=== PATIENT | male | born 1980 | race Caucasian/White ===

== ENCOUNTER 2023-04-29 11:38 | Inpatient (IN) | payer OTHER ==
[2023-04-29] MEDS ORDERED: VANCOMYCIN 1,000 MG in DEXTROSE 5%-WATER - 250 ML IVPB ONE ×2 (12:49→12:54)
[2023-04-29] MEDS ORDERED: PIPERACILLIN/TAZOB 4.5 GM 4.5 GM/100 ML BAG IVPB ONE ×3 (12:49→13:25)
[2023-04-29] MEDS ORDERED: CLINDAMYCIN IVPB 300 MG in DEXTROSE 5%-WATER - 48 ML IVPB ONE (12:54)
[2023-04-29] MEDS ORDERED: VANCOMYCIN 1 GRAM (PRE-DOCKED) 1,000 MG/250 ML BAG IVPB ONE (13:25)
[2023-04-29] MEDS ORDERED: ONDANSETRON 4 MG/2 ML VIAL IVPUSH PRN (14:01)
[2023-04-29] MEDS ORDERED: IBUPROFEN 800 MG/8 ML IJ IVPB PRN (14:01)
[2023-04-29] MEDS ORDERED: LIDOCAINE HCL/PF 2% SDV 5ML VIAL ONE (14:09)
[2023-04-29] MEDS ORDERED: PROPOFOL 40 ML ONE (14:09)
[2023-04-29] MEDS ORDERED: MIDAZOLAM HCL 2 MG/2 ML SINGLE DOSE VIAL ONE (14:10)
[2023-04-29] MEDS ORDERED: FENTANYL CITRATE/PF 50 MCG/ML VIAL ONE ×7 (14:10→16:47)
[2023-04-29 14:30] LABS: BASO % 0.4 % (0-2.0); EOS % 0.5 % (0-4.5); HEMATOCRIT 32.8 % (35.4-49); HEMOGLOBIN 10.5 GM/dL (11.7-16.9); LYMPH % 6.4 % (8-40); MCH 26.4 pg (25.7-33.7); MEAN CELL VOLUME 82.5 fl (80-96); MEAN PLT VOLUME 7.6 fl (7.5-11.1); MONO % 6.6 % (3.8-10.2); NEUT % 86.1 % (42.8-82.8); PLATELET COUNT 405 10^3/uL (134-434); RBC 3.97 M/mm3 (4.00-5.60); RDW 13.9 % (11.9-15.9); WHITE BLOOD COUNT 19.2 K/mm3 (4.0-10.0)
[2023-04-29 14:32] LABS: VENOUS BASE EXCESS -1.6 mmol/L (-2-2); VENOUS O2 SATURATION 79.1 % (70-80); VENOUS PCO2 35.6 mmHg (38-52); VENOUS PH 7.417 (7.310-7.410)
[2023-04-29] MEDS ORDERED: PIPERACILLIN/TAZOBACTAM 3.375 GM VIAL IVPB ONE (14:35)
[2023-04-29 14:46] LABS: INR 1.3 (0.83-1.09)
[2023-04-29 14:49] LABS: ACTIVATED PTT 26.4 SECONDS (25.2-36.5)
[2023-04-29 14:50] LABS: CHLORIDE 100 mmol/L (98-107); POTASSIUM 3.7 mmol/L (3.5-5.1); SODIUM 129 mmol/L (136-145)
[2023-04-29] MEDS ORDERED: VANCOMYCIN 1,000 MG VIAL (RESTRICTED TO ID ONLY) IVPB ONE ×2 (14:50→15:19)
[2023-04-29] MEDS ORDERED: VANCOMYCIN 500 MG VIAL (RESTRICTED TO ID ONLY) IVPB ONE (14:50)
[2023-04-29 14:53] LABS: ANION GAP 7 mmol/L (4-13); CALCIUM 8.7 mg/dL (8.5-10.1); CO2 22 mmol/L (21-32); GLUCOSE,RANDOM 274 mg/dL (74-106)
[2023-04-29 14:54] LABS: ALBUMIN 2.6 g/dl (3.4-5.0); BLOOD UREA NITROGEN 15.6 mg/dL (7-18)
[2023-04-29 14:56] LABS: SGOT/AST 37 U/L (15-37)
[2023-04-29 14:57] LABS: BILIRUBIN,TOTAL 0.8 mg/dL (0.2-1); CREATININE 0.7 mg/dL (0.55-1.3); LDL CHOLESTEROL (ONLY SJRH) 97 mg/dL (5-100); SGPT/ALT 79 U/L (13-61)
[2023-04-29 14:58] LABS: ALK PHOS 220 U/L (45-117); CHOLESTEROL 146 mg/dL (50-200); TOT PROT 7.9 g/dl (6.4-8.2)
[2023-04-29 14:59] LABS: HDL CHOLESTEROL 16 mg/dL (40-60)
[2023-04-29] MEDS ORDERED: VANCOMYCIN 1,000 MG VIAL (RESTRICTED TO ID ONLY) ONE (15:08)
[2023-04-29 15:19] LABS: ERYTHROCYTE SEDIMENTATION RATE 102 mm/hr (0-10)
[2023-04-29] MEDS ORDERED: VANCOMYCIN 1 GM in NS (PRE-DOCKED) 1,000 MG/250 ML (RESTRICTED TO ID ONLY) IVPB ONE (15:19)
[2023-04-29] MEDS: SODIUM CHLORIDE 1,000 ML IV SCH ×2 (16:57→22:19)
[2023-04-29] MEDS ORDERED: CLINDAMYCIN 600MG PREMIX IVPB 600 MG/50 ML BAG IVPB ONE (17:33)
[2023-04-29] MEDS ORDERED: VANCOMYCIN/WATER 1250 MG 1,250 MG/250 ML BAG IVPB SCH (18:00)
[2023-04-29] MEDS ORDERED: PIPERACILLIN/TAZOB 4.5 GM 4.5 GM in DEXTROSE 5%-WATER 100 ML IVPB SCH (18:00)
[2023-04-29] MEDS: CLINDAMYCIN 900 MG PREMIX IVPB 900 MG/50 ML BAG IVPB SCH (18:17)
[2023-04-29] MEDS: PIPERACILLIN/TAZOB 4.5 GM 4.5 GM in DEXTROSE 5%-WATER 100 ML IVPB SCH (18:36)
[2023-04-29] MEDS ORDERED: MELATONIN 5 MG TABLETS PO PRN (19:00)
[2023-04-29] MEDS ORDERED: HYDROmorphone HCl 2 MG/ML VIAL IVPB ONE (20:17)
[2023-04-29] MEDS ORDERED: INSULIN (NOVOLOG) ASPART 100 UNITS/ML 10ML VIAL ONE (22:12)
[2023-04-29] MEDS: INSULIN SLIDING SCALE (NOVOLOG) 1 VIAL SQ SCH (22:20)
[2023-04-29] MEDS: ACETAMINOPHEN 1000 MG/100 ML BAG IVPB PRN (23:47)
[2023-04-30] MEDS: CLINDAMYCIN 900 MG PREMIX IVPB 900 MG/50 ML BAG IVPB SCH ×3 (01:52→19:26)
[2023-04-30] MEDS: PIPERACILLIN/TAZOB 4.5 GM 4.5 GM in DEXTROSE 5%-WATER 100 ML IVPB SCH ×2 (02:43→10:02)
[2023-04-30] MEDS: VANCOMYCIN/WATER 1250 MG 1,250 MG/250 ML BAG IVPB SCH ×2 (04:19→15:46)
[2023-04-30] MEDS: INSULIN SLIDING SCALE (NOVOLOG) 1 VIAL SQ SCH ×5 (06:59→22:06)
[2023-04-30 08:43] LABS: HEMOGLOBIN 9.1 GM/dL (11.7-16.9); MCH 26.7 pg (25.7-33.7); MCHC 32.4 g/dl (32.0-35.9); MEAN CELL VOLUME 82.4 fl (80-96); MEAN PLT VOLUME 7.3 fl (7.5-11.1); PLATELET COUNT 329 10^3/uL (134-434); RDW 14.1 % (11.9-15.9); WHITE BLOOD COUNT 12.6 K/mm3 (4.0-10.0)
[2023-04-30 08:56] LABS: EPI CELLS 13 /uL (0-25.1); HYALINE CASTS 1 /uL (0-3.1); URINE APPEARANCE CLOUDY; URINE BACTERIA 13 /uL (0-1359); URINE BILIRUBIN 1+ (NEGATIVE); URINE COLOR DK YELLOW; URINE GLUCOSE (UA) 3+ (NEGATIVE); URINE KETONE TRACE (NEGATIVE); URINE LEUK ESTERASE NEGATIVE (NEGATIVE); URINE NITRITE NEGATIVE (NEGATIVE); URINE PROTEIN 1+ (NEGATIVE); URINE RBC 38 /uL (0-23.9); URINE WBC 42 /uL (0-25.8)
[2023-04-30 09:03] LABS: POTASSIUM 3.6 mmol/L (3.5-5.1)
[2023-04-30 09:19] LABS: CALCIUM 7.5 mg/dL (8.5-10.1)
[2023-04-30 09:20] LABS: BLOOD UREA NITROGEN 14.4 mg/dL (7-18)
[2023-04-30 09:21] LABS: ALBUMIN 2.2 g/dl (3.4-5.0); MAGNESIUM 2.1 mg/dL (1.8-2.4)
[2023-04-30 09:22] LABS: PHOSPHOROUS 3.4 mg/dL (2.5-4.9)
[2023-04-30 09:23] LABS: CREATININE 0.7 mg/dL (0.55-1.3)
[2023-04-30 09:24] LABS: BILIRUBIN,TOTAL 0.8 mg/dL (0.2-1)
[2023-04-30 09:30] LABS: TOT PROT 5.7 g/dl (6.4-8.2)
[2023-04-30] MEDS: SODIUM CHLORIDE 1,000 ML IV SCH ×2 (09:56→15:32)
[2023-04-30 11:10] LABS: ANISOCYTOSIS 0; HELMET CELLS 0; HOWELL-JOLLY BODIES 0; MACROCYTOSIS 0; OVALOCYTE 0; ROULEAU 0; SICKELED CELLS 0; TARGET CELLS 0; TEAR DROP CELLS 0; TOXIC GRANULATION 0
[2023-04-30] MEDS ORDERED: INSULIN (NOVOLOG) ASPART 100 UNITS/ML 10ML VIAL ONE ×3 (12:16→16:37)
[2023-04-30] MEDS: ACETAMINOPHEN 1000 MG/100 ML BAG IVPB PRN (13:36)
[2023-04-30 15:25] VITALS: BMI 37.5
[2023-05-01] MEDS ORDERED: BUPIVACAINE HCL/PF 0.5% (5MG/ML) 10 ML VIAL IJ ONE
[2023-05-01] MEDS ORDERED: LIDOCAINE HCL 1%, 10 MG/ML (20ML VIAL) INF ONE
[2023-05-01] MEDS: SODIUM CHLORIDE 1,000 ML IV SCH ×2 (00:42→11:25)
[2023-05-01] MEDS: CLINDAMYCIN 900 MG PREMIX IVPB 900 MG/50 ML BAG IVPB SCH ×3 (02:08→17:08)
[2023-05-01] MEDS: INSULIN SLIDING SCALE (NOVOLOG) 1 VIAL SQ SCH ×4 (06:54→22:24)
[2023-05-01] MEDS ORDERED: LIDOCAINE HCL 1%, 10 MG/ML (20ML VIAL) ONE (07:45)
[2023-05-01] MEDS ORDERED: GENTAMICIN SO4 80 MG/2 ML VIAL ONE (07:45)
[2023-05-01] MEDS ORDERED: BUPIVACAINE HCL/PF 0.5% (5MG/ML) 10 ML VIAL ONE (07:45)
[2023-05-01] MEDS ORDERED: VANCOMYCIN 1,000 MG VIAL (RESTRICTED TO ID ONLY) ONE ×2 (07:45→09:35)
[2023-05-01] MEDS ORDERED: THROMBIN (BOVINE) 5,000 UNIT VIAL TP ONE (08:04)
[2023-05-01] MEDS ORDERED: PROPOFOL 20 ML ONE (09:05)
[2023-05-01] MEDS ORDERED: MIDAZOLAM HCL 2 MG/2 ML SINGLE DOSE VIAL ONE (09:05)
[2023-05-01] MEDS ORDERED: FENTANYL CITRATE/PF 50 MCG/ML VIAL ONE ×4 (09:05→11:10)
[2023-05-01] MEDS ORDERED: SUCCINYLCHOLINE CHLORIDE 200 MG/10 ML SYRINGE ONE (09:07)
[2023-05-01] MEDS ORDERED: DEXAMETHASONE SOD PHOSPHATE 4 MG/1 ML VIAL ONE (09:20)
[2023-05-01] MEDS ORDERED: ONDANSETRON 4 MG/2 ML VIAL ONE (09:20)
[2023-05-01] MEDS ORDERED: GENTAMICIN 80MG PREMIX BAG IVPB ONE ×2 (09:30)
[2023-05-01] MEDS ORDERED: VANCOMYCIN 1,000 MG VIAL (RESTRICTED TO ID ONLY) IVPB ONE (09:37)
[2023-05-01] MEDS ORDERED: PIPERACILLIN/TAZOB 4.5 GM 4.5 GM in DEXTROSE 5%-WATER 100 ML IVPB SCH (10:00)
[2023-05-01] MEDS ORDERED: LACTATED RINGERS SOLUTION 1,000 ML IV SCH (10:45)
[2023-05-01 17:31] LABS: BASO % 0.1 % (0-2.0); HEMATOCRIT 29.3 % (35.4-49); HEMOGLOBIN 9.7 GM/dL (11.7-16.9); LYMPH % 5.6 % (8-40); MCH 26.9 pg (25.7-33.7); MEAN CELL VOLUME 81.7 fl (80-96); MEAN PLT VOLUME 6.8 fl (7.5-11.1); MONO % 6.8 % (3.8-10.2); NEUT % 87.5 % (42.8-82.8); PLATELET COUNT 392 10^3/uL (134-434); RBC 3.59 M/mm3 (4.00-5.60); RDW 13.9 % (11.9-15.9); WHITE BLOOD COUNT 14.2 K/mm3 (4.0-10.0)
[2023-05-01] MEDS: PIPERACILLIN/TAZOB 4.5 GM 4.5 GM in DEXTROSE 5%-WATER 100 ML IVPB SCH (17:50)
[2023-05-01] MEDS: INSULIN (LEVEMIR) 100 UNITS/ML UNITS SQ SCH (21:57)
[2023-05-01] MEDS: MELATONIN 5 MG TABLETS PO PRN (21:59)
[2023-05-01] MEDS ORDERED: INSULIN (NOVOLOG) ASPART 100 UNITS/ML 10ML VIAL ONE (22:46)
[2023-05-02] MEDS: PIPERACILLIN/TAZOB 4.5 GM 4.5 GM in DEXTROSE 5%-WATER 100 ML IVPB SCH ×3 (01:05→18:25)
[2023-05-02] MEDS: CLINDAMYCIN 900 MG PREMIX IVPB 900 MG/50 ML BAG IVPB SCH ×3 (01:06→17:11)
[2023-05-02] MEDS: SODIUM CHLORIDE 1,000 ML IV SCH ×2 (01:08→12:11)
[2023-05-02] MEDS: INSULIN (NOVOLOG) ASPART 100 UNITS/ML 10ML VIAL SQ SCH ×3 (06:43→16:37)
[2023-05-02] MEDS: INSULIN SLIDING SCALE (NOVOLOG) 1 VIAL SQ SCH ×4 (06:44→22:42)
[2023-05-02] MEDS ORDERED: INSULIN (NOVOLOG) ASPART 100 UNITS/ML 10ML VIAL ONE (16:43)
[2023-05-02] MEDS ORDERED: ACETAMINOPHEN 325 MG TABLET (FP) PO ONE (18:30)
[2023-05-02] MEDS: VANCOMYCIN/WATER 1250 MG 1,250 MG/250 ML BAG IVPB SCH (19:46)
[2023-05-02] MEDS: INSULIN (LEVEMIR) 100 UNITS/ML UNITS SQ SCH (22:42)
[2023-05-02] MEDS: MELATONIN 5 MG TABLETS PO PRN (23:14)
[2023-05-03] MEDS: SODIUM CHLORIDE 1,000 ML IV SCH ×2 (01:35→20:03)
[2023-05-03] MEDS: CLINDAMYCIN 900 MG PREMIX IVPB 900 MG/50 ML BAG IVPB SCH ×3 (01:41→17:15)
[2023-05-03] MEDS: PIPERACILLIN/TAZOB 4.5 GM 4.5 GM in DEXTROSE 5%-WATER 100 ML IVPB SCH ×3 (02:22→17:15)
[2023-05-03] MEDS: VANCOMYCIN/WATER 1250 MG 1,250 MG/250 ML BAG IVPB SCH ×2 (05:03→17:16)
[2023-05-03] MEDS: INSULIN SLIDING SCALE (NOVOLOG) 1 VIAL SQ SCH ×4 (06:42→22:04)
[2023-05-03] MEDS: INSULIN (NOVOLOG) ASPART 100 UNITS/ML 10ML VIAL SQ SCH ×3 (06:42→18:29)
[2023-05-03 07:24] LABS: HEMATOCRIT 26.5 % (35.4-49); HEMOGLOBIN 9.1 GM/dL (11.7-16.9); MCH 27.7 pg (25.7-33.7); MCHC 34.3 g/dl (32.0-35.9); MEAN CELL VOLUME 80.8 fl (80-96); MEAN PLT VOLUME 6.4 fl (7.5-11.1); PLATELET COUNT 425 10^3/uL (134-434); RBC 3.28 M/mm3 (4.00-5.60); RDW 13.9 % (11.9-15.9); WHITE BLOOD COUNT 10.8 K/mm3 (4.0-10.0)
[2023-05-03 07:47] LABS: POTASSIUM 3.9 mmol/L (3.5-5.1)
[2023-05-03 07:48] LABS: CALCIUM 7.6 mg/dL (8.5-10.1)
[2023-05-03 07:49] LABS: BLOOD UREA NITROGEN 11.4 mg/dL (7-18)
[2023-05-03 07:52] LABS: CREATININE 0.6 mg/dL (0.55-1.3)
[2023-05-03 09:13] LABS: ANISOCYTOSIS 1+; MACROCYTOSIS 0
[2023-05-03] MEDS ORDERED: INSULIN (NOVOLOG) ASPART 100 UNITS/ML 10ML VIAL ONE (21:43)
[2023-05-03] MEDS: INSULIN (LEVEMIR) 100 UNITS/ML UNITS SQ SCH (22:03)
[2023-05-03] MEDS: MELATONIN 5 MG TABLETS PO PRN (23:40)
[2023-05-04] MEDS: CLINDAMYCIN 900 MG PREMIX IVPB 900 MG/50 ML BAG IVPB SCH ×2 (02:39→19:31)
[2023-05-04] MEDS: PIPERACILLIN/TAZOB 4.5 GM 4.5 GM in DEXTROSE 5%-WATER 100 ML IVPB SCH ×2 (03:04→19:31)
[2023-05-04] MEDS: SODIUM CHLORIDE 1,000 ML IV SCH ×3 (04:12→17:37)
[2023-05-04] MEDS: VANCOMYCIN/WATER 1250 MG 1,250 MG/250 ML BAG IVPB SCH (06:01)
[2023-05-04] MEDS: INSULIN SLIDING SCALE (NOVOLOG) 1 VIAL SQ SCH ×4 (06:33→23:04)
[2023-05-04] MEDS: INSULIN (NOVOLOG) ASPART 100 UNITS/ML 10ML VIAL SQ SCH ×3 (06:34→17:11)
[2023-05-04] MEDS: INSULIN (LEVEMIR) 100 UNITS/ML UNITS SQ SCH ×2 (06:34→23:04)
[2023-05-04] MEDS: DAPTOMYCIN 900 MG in SODIUM CHLORIDE 100 ML IVPB SCH (12:33)
[2023-05-04 17:20] LABS: BASO % 0.7 % (0-2.0); EOS % 0.9 % (0-4.5); HEMOGLOBIN 9.9 GM/dL (11.7-16.9); LYMPH % 11.7 % (8-40); MCH 26.9 pg (25.7-33.7); MCHC 32.9 g/dl (32.0-35.9); MEAN CELL VOLUME 81.6 fl (80-96); MEAN PLT VOLUME 6.2 fl (7.5-11.1); MONO % 7.8 % (3.8-10.2); NEUT % 78.9 % (42.8-82.8); PLATELET COUNT 497 10^3/uL (134-434); RBC 3.67 M/mm3 (4.00-5.60); RDW 14.1 % (11.9-15.9); WHITE BLOOD COUNT 13.7 K/mm3 (4.0-10.0)
[2023-05-04] MEDS: MELATONIN 5 MG TABLETS PO PRN (23:08)
[2023-05-05] MEDS: INSULIN SLIDING SCALE (NOVOLOG) 1 VIAL SQ SCH ×4 (06:34→22:11)
[2023-05-05] MEDS: IBUPROFEN 800 MG/8 ML IJ IVPB PRN ×3 (07:01→23:31)
[2023-05-05] MEDS: INSULIN (LEVEMIR) 100 UNITS/ML UNITS SQ SCH ×2 (08:10→22:11)
[2023-05-05] MEDS: INSULIN (NOVOLOG) ASPART 100 UNITS/ML 10ML VIAL SQ SCH ×3 (08:11→16:29)
[2023-05-05] MEDS: SODIUM CHLORIDE 1,000 ML IV SCH ×3 (11:27→23:33)
[2023-05-05] MEDS ORDERED: morphine SULFATE 4 MG/ML VIAL IVPUSH ONE (12:00)
[2023-05-05] MEDS: DAPTOMYCIN 900 MG in SODIUM CHLORIDE 100 ML IVPB SCH (12:23)
[2023-05-05] MEDS ORDERED: INSULIN (NOVOLOG) ASPART 100 UNITS/ML 10ML VIAL ONE (21:03)
[2023-05-05] MEDS: MELATONIN 5 MG TABLETS PO PRN (22:11)
[2023-05-06] MEDS: INSULIN SLIDING SCALE (NOVOLOG) 1 VIAL SQ SCH ×4 (06:25→21:58)
[2023-05-06] MEDS: INSULIN (NOVOLOG) ASPART 100 UNITS/ML 10ML VIAL SQ SCH ×4 (08:12→17:28)
[2023-05-06] MEDS: INSULIN (LEVEMIR) 100 UNITS/ML UNITS SQ SCH ×2 (08:12→23:39)
[2023-05-06 09:12] LABS: BASO % 0.7 % (0-2.0); HEMATOCRIT 29.1 % (35.4-49); HEMOGLOBIN 9.5 GM/dL (11.7-16.9); LYMPH % 11.2 % (8-40); MCH 26.5 pg (25.7-33.7); MCHC 32.8 g/dl (32.0-35.9); MEAN PLT VOLUME 5.9 fl (7.5-11.1); MONO % 5.3 % (3.8-10.2); NEUT % 80.8 % (42.8-82.8); PLATELET COUNT 529 10^3/uL (134-434); RBC 3.59 M/mm3 (4.00-5.60); RDW 13.7 % (11.9-15.9); WHITE BLOOD COUNT 11.3 K/mm3 (4.0-10.0)
[2023-05-06] MEDS: SODIUM CHLORIDE 1,000 ML IV SCH (13:48)
[2023-05-06] MEDS: IBUPROFEN 800 MG/8 ML IJ IVPB PRN ×3 (13:49→23:39)
[2023-05-06] MEDS: DAPTOMYCIN 900 MG in SODIUM CHLORIDE 100 ML IVPB SCH (13:58)
[2023-05-06] MEDS: MELATONIN 5 MG TABLETS PO PRN (23:38)
[2023-05-07] MEDS: IBUPROFEN 800 MG/8 ML IJ IVPB PRN ×2 (02:38→21:28)
[2023-05-07] MEDS: SODIUM CHLORIDE 1,000 ML IV SCH ×2 (04:54→12:18)
[2023-05-07] MEDS: INSULIN SLIDING SCALE (NOVOLOG) 1 VIAL SQ SCH ×4 (07:26→21:38)
[2023-05-07] MEDS: INSULIN (LEVEMIR) 100 UNITS/ML UNITS SQ SCH ×2 (07:26→21:28)
[2023-05-07] MEDS: INSULIN (NOVOLOG) ASPART 100 UNITS/ML 10ML VIAL SQ SCH ×3 (07:26→16:52)
[2023-05-07] MEDS: DAPTOMYCIN 900 MG in SODIUM CHLORIDE 100 ML IVPB SCH (13:40)
[2023-05-07] MEDS: MELATONIN 5 MG TABLETS PO PRN (21:28)
[2023-05-08] MEDS: INSULIN (NOVOLOG) ASPART 100 UNITS/ML 10ML VIAL SQ SCH ×2 (06:38→11:27)
[2023-05-08] MEDS: INSULIN (LEVEMIR) 100 UNITS/ML UNITS SQ SCH (06:41)
[2023-05-08] MEDS: INSULIN SLIDING SCALE (NOVOLOG) 1 VIAL SQ SCH ×2 (08:00→11:27)
[2023-05-08] MEDS: SODIUM CHLORIDE 1,000 ML IV SCH (11:27)
[2023-05-08] MEDS: DAPTOMYCIN 900 MG in SODIUM CHLORIDE 100 ML IVPB SCH (13:05)
[2023-05-08 17:18] VITALS: BP 140/70; PULSE 80; RESP 20; TEMP 98
== END 2023-05-08 15:07 | disposition home or self-care (01) | DRG 464 ==
LOC: JER 11:38 → JERBED 13:18 → J7W 17:49
PROVIDERS: ADMIT Internal Medicine; ATTEND Family Medicine
PROC: 0KBW0ZZ Excision of Left Foot Muscle, Open Approach (ICD-10-PCS; 2023-04-29)
PROC: 0JBR0ZZ Excision of Left Foot Subcutaneous Tissue and Fascia, Open Approach (ICD-10-PCS; 2023-04-29)
PROC: 0J9R0ZZ Drainage of Left Foot Subcutaneous Tissue and Fascia, Open Approach (ICD-10-PCS; 2023-04-29)
PROC: 0JBR0ZZ Excision of Left Foot Subcutaneous Tissue and Fascia, Open Approach (ICD-10-PCS; 2023-05-01)
PROC: 0Y6N0ZB Detachment at Left Foot, Partial 2nd Ray, Open Approach (ICD-10-PCS; principal; 2023-05-01 09:00)
PROC: 0Y6N0ZC Detachment at Left Foot, Partial 3rd Ray, Open Approach (ICD-10-PCS; 2023-05-01 09:00)
PROC: B548ZZA Ultrasonography of Superior Vena Cava, Guidance (ICD-10-PCS; 2023-05-08)
PROC: 02HV33Z Insertion of Infusion Device into Superior Vena Cava, Percutaneous Approach (ICD-10-PCS; 2023-05-08)
DX: M72.6 Necrotizing fasciitis (principal); E11.52 Type 2 diabetes mellitus with diabetic peripheral angiopathy with gangrene; I96 Gangrene, not elsewhere classified; L03.116 Cellulitis of left lower limb; M86.172 Other acute osteomyelitis, left ankle and foot; E11.69 Type 2 diabetes mellitus with other specified complication; E11.41 Type 2 diabetes mellitus with diabetic mononeuropathy; E11.628 Type 2 diabetes mellitus with other skin complications; L08.9 Local infection of the skin and subcutaneous tissue, unspecified; E11.65 Type 2 diabetes mellitus with hyperglycemia; E66.9 Obesity, unspecified; Z68.37 Body mass index [BMI] 37.0-37.9, adult
CPT/HCPCS: 0241U-QW; 36415; 36569; 71045-TC-FY; 73630-TC-LT; 73718-TC-LT; 77001-TC-FY; 80048; 80053; 80061; 81003; 82550; 82553; 82803; 82962; 83036; 83605; 83735; 84100; 85025; 85610; 85651; 85730; 86140; 86850; 86900; 86901; 87040; 87070; 87077; 87086; 87186; 87205; 88304-TC; 88305-TC; 88311-TC; 94760; 97116-GP; 97161-GP; 99285-25; C1713; C1751; G0277; G0480; J0878

== ENCOUNTER 2023-06-03 13:54 | Inpatient (IN) | payer OTHER ==
[2023-06-03 14:09] VITALS: BMI 36.8
[2023-06-03] MEDS ORDERED: CEFTRIAXONE 2 GM-D5W BAG 2 GM/50 ML BAG IVPB ONE (19:02)
[2023-06-03] MEDS ORDERED: CEFTRIAXONE 2 GM/100 ML BAG IVPB ONE (19:35)
[2023-06-03 19:36] LABS: BASO % 0.6 % (0-2.0); EOS % 2.9 % (0-4.5); HEMATOCRIT 32.5 % (35.4-49); HEMOGLOBIN 10.5 GM/dL (11.7-16.9); LYMPH % 17.7 % (8-40); MCH 25.7 pg (25.7-33.7); MCHC 32.4 g/dl (32.0-35.9); MEAN CELL VOLUME 79.3 fl (80-96); MEAN PLT VOLUME 6.5 fl (7.5-11.1); MONO % 6.4 % (3.8-10.2); NEUT % 72.4 % (42.8-82.8); PLATELET COUNT 437 10^3/uL (134-434); RBC 4.09 M/mm3 (4.00-5.60); RDW 14.2 % (11.9-15.9); WHITE BLOOD COUNT 10.1 K/mm3 (4.0-10.0)
[2023-06-03 20:05] LABS: POTASSIUM 4.2 mmol/L (3.5-5.1)
[2023-06-03 20:06] LABS: CALCIUM 9.4 mg/dL (8.5-10.1)
[2023-06-03 20:07] LABS: ALBUMIN 3.4 g/dl (3.4-5.0); BLOOD UREA NITROGEN 20.6 mg/dL (7-18)
[2023-06-03 20:10] LABS: CREATININE 0.7 mg/dL (0.55-1.3)
[2023-06-03 20:11] LABS: BILIRUBIN,TOTAL 0.5 mg/dL (0.2-1)
[2023-06-03 20:12] LABS: TOT PROT 8.1 g/dl (6.4-8.2)
[2023-06-03 20:39] LABS: ERYTHROCYTE SEDIMENTATION RATE 96 mm/hr (0-10)
[2023-06-03] MEDS ORDERED: ACETAMINOPHEN 500 MG TABLET (FP) PO ONE (21:52)
[2023-06-03] MEDS ORDERED: ACETAMINOPHEN 325 MG TABLET (FP) ONE (21:52)
[2023-06-04] MEDS ORDERED: MELATONIN 5 MG TABLETS PO PRN (02:38)
[2023-06-04] MEDS ORDERED: ACETAMINOPHEN 325 MG TABLET (FP) PO PRN (04:00)
[2023-06-04] MEDS: INSULIN ASPART SLIDING SCALE (NOVOLOG) 1 VIAL SQ SCH ×4 (07:58→23:33)
[2023-06-04 08:45] LABS: BASO % 0.9 % (0-2.0); EOS % 3.7 % (0-4.5); HEMATOCRIT 30.8 % (35.4-49); LYMPH % 21.1 % (8-40); MCH 25.7 pg (25.7-33.7); MCHC 32.3 g/dl (32.0-35.9); MEAN CELL VOLUME 79.5 fl (80-96); MEAN PLT VOLUME 6.4 fl (7.5-11.1); MONO % 8.6 % (3.8-10.2); NEUT % 65.7 % (42.8-82.8); PLATELET COUNT 399 10^3/uL (134-434); RBC 3.88 M/mm3 (4.00-5.60); RDW 14.2 % (11.9-15.9); WHITE BLOOD COUNT 7.5 K/mm3 (4.0-10.0)
[2023-06-04] MEDS ORDERED: SODIUM CHLORIDE IV SCH (10:00)
[2023-06-04] MEDS ORDERED: DAPTOMYCIN IV SCH (10:00)
[2023-06-04 10:46] VITALS: TEMP 98.1
[2023-06-04 11:56] LABS: BLOOD UREA NITROGEN 13.8 mg/dL (7-18); CREATININE 0.6 mg/dL (0.55-1.3)
[2023-06-04] MEDS ORDERED: DAPTOMYCIN 900 MG in SODIUM CHLORIDE 50 ML IVPB ONE (12:00)
[2023-06-04] MEDS: DAPTOMYCIN 900 MG in SODIUM CHLORIDE 50 ML IVPB SCH (12:06)
[2023-06-04] MEDS: ERTAPENEM SODIUM 1 GM in SODIUM CHLORIDE 50 ML IVPB SCH (12:14)
[2023-06-04 15:42] VITALS: RESP 20
[2023-06-04] MEDS ORDERED: CEFTRIAXONE 2 GM in DEXTROSE 5%-WATER 100 ML IVPB SCH (19:00)
[2023-06-05] MEDS: INSULIN ASPART SLIDING SCALE (NOVOLOG) 1 VIAL SQ SCH ×3 (06:17→16:29)
[2023-06-05] MEDS: ERTAPENEM SODIUM 1 GM in SODIUM CHLORIDE 50 ML IVPB SCH ×2 (10:53→12:15)
[2023-06-05] MEDS: DAPTOMYCIN 900 MG in SODIUM CHLORIDE 50 ML IVPB SCH ×2 (10:53→12:14)
[2023-06-05 14:33] VITALS: BP 108/60; PULSE 96
== END 2023-06-05 19:07 | disposition home or self-care (01) | DRG 603 ==
LOC: JER 13:54 → JERBED 20:43 → J7W 06-04 22:53
PROVIDERS: ADMIT Internal Medicine; ATTEND Family Medicine
DX: L03.116 Cellulitis of left lower limb (principal); L97.528 Non-pressure chronic ulcer of other part of left foot with other specified severity; M86.8X7 Other osteomyelitis, ankle and foot; E11.621 Type 2 diabetes mellitus with foot ulcer; D64.9 Anemia, unspecified; E11.628 Type 2 diabetes mellitus with other skin complications; E11.69 Type 2 diabetes mellitus with other specified complication; E11.41 Type 2 diabetes mellitus with diabetic mononeuropathy; L08.9 Local infection of the skin and subcutaneous tissue, unspecified; E66.9 Obesity, unspecified; Z68.36 Body mass index [BMI] 36.0-36.9, adult; Z89.432 Acquired absence of left foot
CPT/HCPCS: 36415; 73630-TC-LT; 73718-TC-LT; 80048; 80053; 82272; 82550; 82728; 82962; 82977; 83036; 83540; 83550; 85025; 85651; 86140; 93005; 93010; 97597; 99285-25; G0277; J0878

== ENCOUNTER 2023-06-17 09:26 | Inpatient (IN) | payer OTHER ==
[2023-06-17 11:54] LABS: INR 1.2 (0.83-1.09); PROTHROMBIN TIME (PATIENT) 13.9 SEC (9.7-13.0)
[2023-06-17 11:57] LABS: ACTIVATED PTT 34.1 SECONDS (25.2-36.5)
[2023-06-17 12:08] LABS: CALCIUM 9.4 mg/dL (8.5-10.1); POTASSIUM 4.9 mmol/L (3.5-5.1)
[2023-06-17 12:09] LABS: ALBUMIN 3.7 g/dl (3.4-5.0)
[2023-06-17 12:13] LABS: CREATININE 0.7 mg/dL (0.55-1.3)
[2023-06-17 12:14] LABS: BILIRUBIN,TOTAL 0.4 mg/dL (0.2-1); TOT PROT 8.2 g/dl (6.4-8.2)
[2023-06-17 12:37] LABS: BASO % 0.7 % (0-2.0); EOS % 4.1 % (0-4.5); HEMATOCRIT 32.5 % (35.4-49); HEMOGLOBIN 10.8 GM/dL (11.7-16.9); LYMPH % 23.8 % (8-40); MCH 26.2 pg (25.7-33.7); MCHC 33.3 g/dl (32.0-35.9); MEAN CELL VOLUME 78.8 fl (80-96); MEAN PLT VOLUME 6.9 fl (7.5-11.1); MONO % 6.7 % (3.8-10.2); NEUT % 64.7 % (42.8-82.8); PLATELET COUNT 427 10^3/uL (134-434); RBC 4.12 M/mm3 (4.00-5.60); RDW 14.8 % (11.9-15.9); WHITE BLOOD COUNT 7.9 K/mm3 (4.0-10.0)
[2023-06-17] MEDS ORDERED: CEFTRIAXONE 2 GM/100 ML BAG IVPB ONE (17:12)
[2023-06-17] MEDS: CEFTRIAXONE 2 GM in DEXTROSE 5%-WATER 100 ML IVPB SCH (17:20)
[2023-06-17] MEDS ORDERED: VANCOMYCIN 1 GRAM (PRE-DOCKED) 1,000 MG/250 ML BAG IVPB ONE (17:39)
[2023-06-17] MEDS: VANCOMYCIN/WATER FOR INJ (PEG) 1,000 MG/200 ML BAG IVPB SCH (17:45)
[2023-06-17] MEDS ORDERED: IRON SUCROSE INJECTION 200 MG in SODIUM CHLORIDE 90 ML IVPB ONE (19:16)
[2023-06-18] MEDS: VANCOMYCIN/WATER FOR INJ (PEG) 1,000 MG/200 ML BAG IVPB SCH ×2 (03:42→16:47)
[2023-06-18] MEDS: CEFTRIAXONE 2 GM in DEXTROSE 5%-WATER 100 ML IVPB SCH (09:25)
[2023-06-18] MEDS ORDERED: ENOXAPARIN NA (PORCINE) 40 MG/0.4 ML DISP.SYRIN SQ SCH (10:00)
[2023-06-18 10:55] LABS: EOS % 4.5 % (0-4.5); HEMATOCRIT 32.9 % (35.4-49); HEMOGLOBIN 10.7 GM/dL (11.7-16.9); MCH 25.8 pg (25.7-33.7); MCHC 32.6 g/dl (32.0-35.9); MEAN CELL VOLUME 79.1 fl (80-96); MEAN PLT VOLUME 6.7 fl (7.5-11.1); MONO % 6.6 % (3.8-10.2); NEUT % 69.9 % (42.8-82.8); PLATELET COUNT 412 10^3/uL (134-434); RBC 4.15 M/mm3 (4.00-5.60); RDW 14.8 % (11.9-15.9); WHITE BLOOD COUNT 6.9 K/mm3 (4.0-10.0)
[2023-06-18 11:07] LABS: POTASSIUM 3.9 mmol/L (3.5-5.1)
[2023-06-18 11:12] LABS: BLOOD UREA NITROGEN 15.6 mg/dL (7-18); CALCIUM 8.9 mg/dL (8.5-10.1)
[2023-06-18 11:15] LABS: CREATININE 0.7 mg/dL (0.55-1.3)
[2023-06-18] MEDS ORDERED: PEG 3350/NA SULF BICARB CL/KCL 4000 ML SOLN.RECON PO ONE (17:00)
[2023-06-18] MEDS ORDERED: BISACODYL 5 MG TABLET.DR (FP) PO ONE (20:00)
[2023-06-19] MEDS: VANCOMYCIN/WATER FOR INJ (PEG) 1,000 MG/200 ML BAG IVPB SCH (03:41)
[2023-06-19] MEDS: CEFTRIAXONE 2 GM in DEXTROSE 5%-WATER 100 ML IVPB SCH (09:46)
[2023-06-19 14:17] LABS: BASO % 0.7 % (0-2.0); EOS % 7.1 % (0-4.5); HEMOGLOBIN 10.6 GM/dL (11.7-16.9); LYMPH % 28.8 % (8-40); MCH 25.5 pg (25.7-33.7); MCHC 31.9 g/dl (32.0-35.9); MEAN CELL VOLUME 79.9 fl (80-96); MEAN PLT VOLUME 6.7 fl (7.5-11.1); MONO % 8.2 % (3.8-10.2); NEUT % 55.2 % (42.8-82.8); PLATELET COUNT 407 10^3/uL (134-434); RBC 4.13 M/mm3 (4.00-5.60); RDW 15.1 % (11.9-15.9); WHITE BLOOD COUNT 6.2 K/mm3 (4.0-10.0)
[2023-06-19 14:36] LABS: POTASSIUM 4.3 mmol/L (3.5-5.1)
[2023-06-19 14:38] LABS: CALCIUM 9.3 mg/dL (8.5-10.1)
[2023-06-19 14:41] LABS: ALBUMIN 3.3 g/dl (3.4-5.0)
[2023-06-19 14:42] LABS: CREATININE 0.6 mg/dL (0.55-1.3)
[2023-06-19 14:44] LABS: BILIRUBIN,DIRECT 0.1 mg/dL (0.0-0.2)
[2023-06-19 14:45] LABS: BILIRUBIN,TOTAL 0.4 mg/dL (0.2-1); TOT PROT 7.5 g/dl (6.4-8.2)
[2023-06-20] MEDS: CEFTRIAXONE 2 GM in DEXTROSE 5%-WATER 100 ML IVPB SCH (09:47)
[2023-06-20] MEDS ORDERED: ACETAMINOPHEN 325 MG TABLET (FP) PO PRN (10:32)
[2023-06-21] MEDS: CEFTRIAXONE 2 GM in DEXTROSE 5%-WATER 100 ML IVPB SCH (09:18)
[2023-06-21 09:22] LABS: BASO % 0.7 % (0-2.0); EOS % 5.8 % (0-4.5); HEMOGLOBIN 10.4 GM/dL (11.7-16.9); LYMPH % 25.7 % (8-40); MCH 26.1 pg (25.7-33.7); MCHC 32.6 g/dl (32.0-35.9); MEAN CELL VOLUME 79.9 fl (80-96); MEAN PLT VOLUME 6.6 fl (7.5-11.1); MONO % 6.6 % (3.8-10.2); NEUT % 61.2 % (42.8-82.8); PLATELET COUNT 390 10^3/uL (134-434); WHITE BLOOD COUNT 6.3 K/mm3 (4.0-10.0)
[2023-06-21 09:33] LABS: POTASSIUM 4.3 mmol/L (3.5-5.1)
[2023-06-21 09:35] LABS: CALCIUM 8.7 mg/dL (8.5-10.1)
[2023-06-21 09:36] LABS: BLOOD UREA NITROGEN 14.9 mg/dL (7-18)
[2023-06-21 09:39] LABS: CREATININE 0.6 mg/dL (0.55-1.3)
[2023-06-21 10:31] LABS: INR 1.1 (0.83-1.09); PROTHROMBIN TIME (PATIENT) 12.8 SEC (9.7-13.0)
[2023-06-22] MEDS ORDERED: LIDOCAINE HCL 1%, 10 MG/ML (20ML VIAL) ONE (07:23)
[2023-06-22] MEDS ORDERED: DEXAMETHASONE SOD PHOSPHATE 4 MG/1 ML VIAL ONE (07:23)
[2023-06-22] MEDS ORDERED: BUPIVACAINE HCL/PF 0.5% (5MG/ML) 10 ML VIAL ONE (07:23)
[2023-06-22] MEDS ORDERED: GENTAMICIN SO4 80 MG/2 ML VIAL ONE ×2 (08:32→10:43)
[2023-06-22] MEDS ORDERED: VANCOMYCIN 1,000 MG VIAL (RESTRICTED TO ID ONLY) ONE (08:32)
[2023-06-22 08:37] LABS: BASO % 0.8 % (0-2.0); EOS % 6.1 % (0-4.5); HEMATOCRIT 32.4 % (35.4-49); HEMOGLOBIN 10.6 GM/dL (11.7-16.9); LYMPH % 27.5 % (8-40); MCHC 32.8 g/dl (32.0-35.9); MEAN CELL VOLUME 79.3 fl (80-96); MEAN PLT VOLUME 6.7 fl (7.5-11.1); MONO % 7.4 % (3.8-10.2); NEUT % 58.2 % (42.8-82.8); PLATELET COUNT 357 10^3/uL (134-434); RBC 4.09 M/mm3 (4.00-5.60); RDW 15.1 % (11.9-15.9); WHITE BLOOD COUNT 5.4 K/mm3 (4.0-10.0)
[2023-06-22 08:47] LABS: POTASSIUM 4.1 mmol/L (3.5-5.1)
[2023-06-22 08:49] LABS: ALBUMIN 3.3 g/dl (3.4-5.0); BLOOD UREA NITROGEN 13.4 mg/dL (7-18)
[2023-06-22 08:51] LABS: CALCIUM 8.9 mg/dL (8.5-10.1)
[2023-06-22 08:52] LABS: CREATININE 0.5 mg/dL (0.55-1.3)
[2023-06-22 08:54] LABS: BILIRUBIN,TOTAL 0.3 mg/dL (0.2-1); TOT PROT 7.1 g/dl (6.4-8.2)
[2023-06-22] MEDS: CEFTRIAXONE 2 GM in DEXTROSE 5%-WATER 100 ML IVPB SCH (09:30)
[2023-06-22] MEDS ORDERED: PROPOFOL 40 ML ONE (10:01)
[2023-06-22] MEDS ORDERED: MIDAZOLAM HCL 2 MG/2 ML SINGLE DOSE VIAL ONE ×2 (10:01→10:35)
[2023-06-22] MEDS ORDERED: LIDOCAINE HCL/PF 2% SDV 5ML VIAL ONE (10:11)
[2023-06-22] MEDS ORDERED: LIDOCAINE HCL 1%, 10 MG/ML (20ML VIAL) SQ ONE (10:21)
[2023-06-22] MEDS ORDERED: BUPIVACAINE HCL/PF 0.5% (5 MG/ML) 30 ML VIAL IJ ONE ×2 (10:21)
[2023-06-22] MEDS ORDERED: THROMBIN (BOVINE) 5,000 UNIT VIAL TP ONE (10:30)
[2023-06-22] MEDS ORDERED: LACTATED RINGERS SOLUTION 1,000 ML IV SCH ×2 (11:30→11:38)
[2023-06-22] MEDS ORDERED: ACETAMINOPHEN 325 MG TABLET (FP) PO PRN (11:38)
[2023-06-23 05:00] VITALS: RESP 18
[2023-06-23] MEDS: CEFTRIAXONE 2 GM in DEXTROSE 5%-WATER 100 ML IVPB SCH (10:05)
[2023-06-23 10:15] LABS: BASO % 0.6 % (0-2.0); HEMATOCRIT 33.5 % (35.4-49); HEMOGLOBIN 11.1 GM/dL (11.7-16.9); LYMPH % 21.8 % (8-40); MCH 26.6 pg (25.7-33.7); MCHC 33.1 g/dl (32.0-35.9); MEAN CELL VOLUME 80.2 fl (80-96); MEAN PLT VOLUME 6.8 fl (7.5-11.1); MONO % 6.5 % (3.8-10.2); NEUT % 67.1 % (42.8-82.8); PLATELET COUNT 395 10^3/uL (134-434); RBC 4.18 M/mm3 (4.00-5.60); RDW 15.4 % (11.9-15.9); WHITE BLOOD COUNT 7.9 K/mm3 (4.0-10.0)
[2023-06-23 10:25] LABS: POTASSIUM 4.3 mmol/L (3.5-5.1)
[2023-06-23 10:36] LABS: CALCIUM 9.5 mg/dL (8.5-10.1)
[2023-06-23 10:37] LABS: ALBUMIN 3.6 g/dl (3.4-5.0); BLOOD UREA NITROGEN 12.7 mg/dL (7-18)
[2023-06-23 10:43] LABS: BILIRUBIN,TOTAL 0.5 mg/dL (0.2-1); CREATININE 0.5 mg/dL (0.55-1.3)
[2023-06-23 10:45] LABS: TOT PROT 7.6 g/dl (6.4-8.2)
[2023-06-24 05:12] VITALS: BP 135/73; PULSE 83; TEMP 98.9
[2023-06-24] MEDS: CEFTRIAXONE 2 GM in DEXTROSE 5%-WATER 100 ML IVPB SCH (09:21)
[2023-06-24 23:19] VITALS: BMI 35.4
== END 2023-06-24 15:55 | disposition home or self-care (01) | DRG 617 ==
LOC: JER 09:26 → JERBED 10:03 → J6S 21:14
PROVIDERS: ADMIT Internal Medicine; ATTEND Internal Medicine
PROC: 0DBP8ZZ Excision of Rectum, Via Natural or Artificial Opening Endoscopic (ICD-10-PCS; 2023-06-19)
PROC: 0DB68ZX Excision of Stomach, Via Natural or Artificial Opening Endoscopic, Diagnostic (ICD-10-PCS; 2023-06-19)
PROC: 0J9R0ZZ Drainage of Left Foot Subcutaneous Tissue and Fascia, Open Approach (ICD-10-PCS; 2023-06-22)
PROC: 0Y6Q0Z0 Detachment at Left 1st Toe, Complete, Open Approach (ICD-10-PCS; principal; 2023-06-22 10:00)
DX: E11.69 Type 2 diabetes mellitus with other specified complication (principal); E11.52 Type 2 diabetes mellitus with diabetic peripheral angiopathy with gangrene; M86.8X8 Other osteomyelitis, other site; I96 Gangrene, not elsewhere classified; L97.528 Non-pressure chronic ulcer of other part of left foot with other specified severity; M86.672 Other chronic osteomyelitis, left ankle and foot; E11.628 Type 2 diabetes mellitus with other skin complications; L08.9 Local infection of the skin and subcutaneous tissue, unspecified; E11.621 Type 2 diabetes mellitus with foot ulcer; E11.41 Type 2 diabetes mellitus with diabetic mononeuropathy; D64.9 Anemia, unspecified; K29.60 Other gastritis without bleeding; D12.8 Benign neoplasm of rectum; Z89.422 Acquired absence of other left toe(s)
CPT/HCPCS: 0241U-QW; 36415; 73590-TC-LT-FY; 73610-TC-LT-FY; 73630-TC-LT; 76705-TC; 80048; 80053; 80076; 82272; 82962; 85025; 85610; 85730; 86704; 86803; 86850; 86900; 86901; 87040; 87070; 87077; 87205; 87340; 87517; 88305-TC; 88311-TC; 94760; C1713; G0277; G0463-25; J1756